=== PATIENT | female | born 1990 | race Caucasian/White ===

== ENCOUNTER 2018-11-29 18:06 | Emergency (ER) | payer SELFPAY ==
--- OUTSIDE RECORDS SUMMARY | 2018-11-29 18:08 | XMS REPORT ---
:1990 [facility] Santiago [address] [place] [id number] Care Team Providers Name Role Phone Unavailable Unavailable Unavailable Problems This patient has no known problems. Allergies, Adverse Reactions, Alerts This patient has no known allergies or adverse reactions. Medications This patient has no known medications.
--- NOTE | 2018-11-29 20:22 | ER ---
Nurse's Notes [facility] Name: Janice Arias Age: 28 yrs Sex: Female : 1990 Arrival Date: 11/29/2018 Time: 18:09 Bed 9 Private MD: Diagnosis: Malaise and fatigue;Oral mucositis (ulcerative), unspecified Presentation: 11/29 18:27 Presenting complaint: Patient states: right ear pain, swelling to right corner of aa5 mouth, pain to right side of gums, cough, and headache that began x 2 days ago. Transition of care: patient was not received from another setting of care. Onset of symptoms was November 2018. Risk Assessment: Do you want to hurt yourself or someone else? Patient reports no desire to harm self or others. Initial Sepsis Screen: Does the patient meet any 2 criteria? No. Patient's initial sepsis screen is negative. Does the patient have a suspected source of infection? No. Patient's initial sepsis screen is negative. Care prior to arrival: None. 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 - Social history:: Smoking status: Patient uses tobacco products, smokes one-half pack cigarettes per day. - Ebola Screening: : No symptoms or risks identified at this time. Screenin:00 Abuse screen: Denies threats or abuse. Nutritional screening: No deficits noted. fc Tuberculosis screening: No symptoms or risk factors identified. Fall Risk None identified. Assessment: 20:00 General: Appears uncomfortable, slender, Behavior is calm, cooperative, appropriate for age. Pain: Complains of pain in mouth Pain currently is 9 out of 10 on a pain scale. Quality of pain is described as burning, aching, Pain began 2-3 days ago. Is continuous, Aggravated by eating, drinking, palpitation. Neuro: Level of Consciousness is awake, alert, obeys commands, Oriented to person, place, time, situation, Appropriate for age. Cardiovascular: No deficits noted. Respiratory: No deficits noted. GI: No deficits noted. : No deficits noted. EENT: Lesions noted. Ulcers to right inner cheek and gum. Derm: Skin is pink, warm \T\ dry. Musculoskeletal: Circulation, motion, and sensation intact. Capillary refill < 3 seconds, Range of motion: intact in all extremities. Vital Signs: 18:28 BP 115 / 77; Pulse 87; Resp 18 S; Temp 97.5(TE); Pulse Ox 97% on R/A; Weight 57.61 kg aa5 (R); Height 5 ft. 0 in. (152.40 cm) (R); Pain 10/10; 18:28 Body Mass Index 24.80 (57.61 kg, 152.40 cm) aa5 ED Course: 18:09 Patient arrived in ED. mr 18:27 Arm band placed on. aa5 18:28 Triage completed. aa5 19:56 Xiao Weber FNP-C is [facility]. snw 19:56 Kang Veras MD is Attending Physician. snw 20:00 Patient has correct armband on for positive identification. Bed in low position. Call fc light in reach. Administered Medications: 20:38 Drug: TORadol 60 mg Route: IM; Site: left gluteus; fc Outcome: 20:19 Discharge ordered by . snw 20:55 Patient left the ED. la1 Signatures: Xiao Weber FNP-C CARCASS WASHER-Kathi Zita Lara mr SullymileJulee RN RN Marylou Connor RN RN [place] [employer] [facility] Gerardo Sanchez RN RN la1
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
[2018-11-29] MEDS ORDERED: KETOROLAC 30 MG/ML INJ ONE (20:46)
[2018-11-29 20:59] VITALS: BP 115/77; TEMP 97.5; O2SAT 97
== END 2018-11-29 20:55 | disposition home or self-care (01) ==
LOC: ER 18:06
DX: R53.81 Other malaise (principal); R53.83 Other fatigue; K12.30 Oral mucositis (ulcerative), unspecified; D64.9 Anemia, unspecified; K50.90 Crohn's disease, unspecified, without complications; Z88.5 Allergy status to narcotic agent; F17.210 Nicotine dependence, cigarettes, uncomplicated
CPT/HCPCS: 96372; 99282

== ENCOUNTER 2019-01-03 04:38 | Emergency (ER) | payer SELFPAY ==
--- OUTSIDE RECORDS SUMMARY | 2019-01-03 04:40 | XMS REPORT ---
:1990 [facility] Address [address] [place] [address] Dr. Santiago [address] [place] [id number] Care Team Providers Name Role Phone Unavailable Unavailable Unavailable Problems This patient has no known problems. Allergies, Adverse Reactions, Alerts This patient has no known allergies or adverse reactions. Medications This patient has no known medications.
[2019-01-03 05:02] LABS: Absolute Lymphocytes (CBC) 4.2 K/uL (0.7-4.9); Absolute Monocytes 1.1 K/uL (0.1-1.3); Absolute Neutrophil 11.5 K/uL (1.8-8.0); Basophils % 0.2 % (0-1.3); Eosinophils % 0.7 % (0-4.4); Hematocrit 35.5 % (36.0-45.0); Lymphocytes % 24.5 % (15.3-44.8); MPV 8.8 fL (7.6-11.3); Monocytes % 6.7 % (3.3-12.3); RBC Red Blood Cell Count 3.88 M/uL (3.86-4.86)
[2019-01-03] MEDS ORDERED: CEFAZOLIN SODIUM 1 GM/VIAL ONE (05:05)
[2019-01-03] MEDS ORDERED: FENTANYL CITR 100 MCG/2 ML ONE (05:06)
[2019-01-03] MEDS ORDERED: NA CHLORIDE 0.9% 100 ML IV ONE (05:07)
[2019-01-03] MEDS ORDERED: TETANUS & DIPHTHERIA TOX,ADULT 0.5 ML VIAL ONE (05:07)
[2019-01-03] MEDS ORDERED: NA CHLORIDE 0.9% 1,000 ML ONE (05:07)
[2019-01-03] MEDS ORDERED: ONDANSETRON 4 MG/2 ML VIAL ONE (05:07)
[2019-01-03 05:22] LABS: Albumin 3.8 g/dL (3.4-5.0); Bilirubin Total 0.2 mg/dL (0.2-1.0)
[2019-01-03 05:23] LABS: Potassium 2.8 mmol/L (3.5-5.1)
[2019-01-03] MEDS ORDERED: LIDOCAINE 1% W/EPI 1:100,000 MDV 50 ML VIAL ONE (05:37)
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
[2019-01-03 09:55] VITALS: BP 94/51; TEMP 97.9; O2SAT 100
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
== END 2019-01-03 09:37 | disposition home or self-care (01) ==
LOC: ER 04:38
PROC: 0JQR0ZZ Repair Left Foot Subcutaneous Tissue and Fascia, Open Approach (ICD-10-PCS; principal; 2019-01-03)
DX: S61.411A Laceration without foreign body of right hand, initial encounter (principal); S91.312A Laceration without foreign body, left foot, initial encounter; S61.214A Laceration without foreign body of right ring finger without damage to nail, initial encounter; S00.83XA Contusion of other part of head, initial encounter; Y09 Assault by unspecified means; W18.02XA Striking against glass with subsequent fall, initial encounter; F10.929 Alcohol use, unspecified with intoxication, unspecified; F17.210 Nicotine dependence, cigarettes, uncomplicated; D64.9 Anemia, unspecified; K50.90 Crohn's disease, unspecified, without complications
CPT/HCPCS: 36415; 70450; 70486; 71045; 71260; 72125; 74177; 76377; 80053; 80320; 85025; 86850; 86900; 86901; 90714; 96365; 96375; 99285; J0690; J2405; J3010; J7030; Q9967

== ENCOUNTER 2019-03-27 12:44 | Emergency (ER) | payer SELFPAY ==
--- OUTSIDE RECORDS SUMMARY | 2019-03-27 12:47 | XMS REPORT ---
:1990 [facility] Address [address] [place] [address] Dr. Santiago [address] [place] [id number] Care Team Providers Name Role Phone Unavailable Unavailable Unavailable Problems This patient has no known problems. Allergies, Adverse Reactions, Alerts This patient has no known allergies or adverse reactions. Medications This patient has no known medications.
[2019-03-27] MEDS ORDERED: ONDANSETRON 4 MG (ODT) TAB ONE (13:20)
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
[2019-03-27] MEDS ORDERED: HYDROCODONE/APAP 5/325 MG TAB ONE (14:03)
[2019-03-27] MEDS ORDERED: LIDOCAINE 1% MPF 2 ML AMPULE ONE ×2 (14:04→14:35)
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
[2019-03-27 15:31] VITALS: BP 103/64; TEMP 98.2; O2SAT 98
== END 2019-03-27 15:09 | disposition home or self-care (01) ==
LOC: ER 12:44
PROC: 0JQ10ZZ Repair Face Subcutaneous Tissue and Fascia, Open Approach (ICD-10-PCS; principal; 2019-03-27)
DX: S00.93XA Contusion of unspecified part of head, initial encounter (principal); S01.81XA Laceration without foreign body of other part of head, initial encounter; X99.8XXA Assault by other sharp object, initial encounter; Y93.9 Activity, unspecified; Y92.9 Unspecified place or not applicable; F17.220 Nicotine dependence, chewing tobacco, uncomplicated; Z88.6 Allergy status to analgesic agent
CPT/HCPCS: 70450; 70486; 76377; 99284; J2001